=== PATIENT | female | born 1995 | race African-American/Black ===

== ENCOUNTER 2022-10-11 00:27 | Inpatient (IN) | payer OTHER ==
[~2022-10-11] VITALS: Ht 154.9 cm; Wt 75.8 kg
--- NOTE | 2022-10-11 00:45 | NUR ---
Rubi AOx4, states she feels anxious due to the situation she was in earlier today. Patient statesshe has know pain just feeling situation is unreal. Discussed plan of care, patient verbalized agreement. Patient with no signs of distress other than anxious. All safety precautions taken.
[2022-10-11] MEDS ORDERED: LORAZEPAM INJ 2 MG/ML VIAL IVP ONE (01:00)
[2022-10-11] MEDS ORDERED: IV NS 0.9% 1,000 ML BAG IV ONE (01:00)
--- NOTE | 2022-10-11 01:00 | NUR ---
Blood collected, sent to lab
--- NOTE | 2022-10-11 01:03 | NUR ---
Urine collected, sent to lab
[2022-10-11 01:07] LABS: BASOPHILS # (AUTO) 0.1 K/uL (0.0-0.2); BASOPHILS % (AUTO) 0.6 % (0.0-2.0); HEMATOCRIT 40 % (33-45); HEMOGLOBIN 13.5 g/dL (11.5-14.8); LYMPHOCYTES # (AUTO) 2.3 K/uL (0.8-4.8); LYMPHOCYTES % (AUTO) 25.8 % (20.0-44.0); MEAN CORPUSCULAR HGB CONC 34 g/dl (31.0-36.0); MEAN CORPUSCULAR VOLUME 94 fL (82-100); MONOCYTES # (AUTO) 0.6 K/uL (0.1-1.30); MONOCYTES % (AUTO) 6.6 % (2.0-12.0); PLATELET COUNT (AUTO) 333 K/uL (150-450); RED BLOOD CELL COUNT(AUTO) 4.22 MIL/uL (4.0-5.2); WHITE BLOOD COUNT (AUTO) 9.1 K/uL (4.3-11.0)
[2022-10-11] MEDS ORDERED: LORAZEPAM INJ 2 MG/ML VIAL ONE (01:21)
[2022-10-11 01:36] LABS: ALANINE AMINOTRANSFERASE 34 U/L (12-78); ALBUMIN 4.2 g/dL (3.4-5.0); ALCOHOL, BLOOD 126 mg/dL (0-0); ALKALINE PHOSPHATASE 64 U/L (46-116); ASPARTATE AMINOTRANSFERASE 27 U/L (15-37); BILIRUBIN,DIRECT 0.1 mg/dL (0.0-0.2); BILIRUBIN,TOTAL 0.7 mg/dL (0.2-1.0); CALCIUM, SERUM 9.5 mg/dL (8.5-10.1); CARBON DIOXIDE 14 mmol/L (21-32); CHLORIDE 99 mmol/L (98-107); CREATININE 1.1 mg/dL (0.6-1.3); GLUCOSE 133 mg/dL (74-106); SODIUM SERUM 135 mmol/L (136-145); TOTAL PROTEIN, SERUM 8.3 g/dL (6.4-8.2); UREA NITROGEN, BLOOD 13 mg/dL (7-18)
[2022-10-11 01:37] LABS: POTASSIUM 2.3 mmol/L (3.5-5.1)
--- NOTE | 2022-10-11 01:37 | NUR ---
[employer] at bedside assisting patient to contact family and track down cell phone.
--- NOTE | 2022-10-11 01:37 | NUR ---
CRITICAL LAB RESULT: POTASSIUM 2.3 DR GIO ODONNELL AWARE
--- NOTE | 2022-10-11 01:44 | NUR ---
GENE CAM (FATHER) [phone]
[2022-10-11] MEDS ORDERED: POTASSIUM CL. PREMIX PERIPHER. 50 ML ONE ×4 (01:52→05:13)
[2022-10-11] MEDS ORDERED: POTASSIUM CHLORIDE 20 MEQ TAB.PRT.SR PO ONE ×2 (01:52→02:00)
[2022-10-11 02:02] LABS: BILIRUBIN,URINE NEGATIVE (NEGATIVE); COLOR,URINE YELLOW (YELLOW); LEUKOCYTE ESTERASE ,URINE TRACE (NEGATIVE); NITRITE, URINE NEGATIVE (NEGATIVE); PROTEIN,URINE NEGATIVE (NEGATIVE); UGLUCOSE NEGATIVE (NEGATIVE); UROBILINOGEN,URINE 0.2 EU/dL (0.2)
[2022-10-11 02:03] LABS: BACTERIA,URINE Rare /HPF (None Seen); RBC,URINE 0-2 /HPF (0-2); SQUAMOUS EPITHELIAL CELL,UR Few /HPF (None Seen); WBC,URINE 0-2 /HPF (0-3)
[2022-10-11] MEDS: POTASSIUM CL. PREMIX PERIPHER. 50 ML IV SCH ×4 (02:05→05:21)
--- NOTE | 2022-10-11 02:20 | NUR ---
CALLED RT FOR [facility]
--- NOTE | 2022-10-11 02:33 | NUR ---
DR POWERS PRESENT PT TO GERALDINE GAGNON
[2022-10-11 04:24] LABS: SITE, VBG Other; VBG COHb 0.2 %; VBG MetHb 0.3 %; VBG O2Hb 73.5 %; VENT MODE, VBG room air
--- NOTE | 2022-10-11 05:22 | NUR ---
Patient AOx4, no signs of distress or discomforts. Patient states she feels better compared to when she was first admitted. Would like to go home and communicate with her steel worker her current situation. Discussed plan of care, and the MDs concerns. Patient states she will think about staying and will let us know if she amor leave AMA.
[2022-10-11] MEDS ORDERED: IV NS 0.9% 1,000 ML IV ONE (05:30)
[2022-10-11] MEDS ORDERED: Z GUARD REMEDY 4 OZ OINT TP PRN (05:30)
[2022-10-11] MEDS ORDERED: ZOLPIDEM TARTRATE 5 MG TABLET PO PRN (05:30)
[2022-10-11] MEDS ORDERED: MAGNESIUM HYDROXIDE 30 ML UDC PO PRN (05:30)
[2022-10-11] MEDS ORDERED: ONDANSETRON HCL/PF 4 MG/2 ML VIAL IVP PRN (05:30)
[2022-10-11] MEDS ORDERED: ACETAMINOPHEN 325 MG TABLET PO PRN (05:30)
[2022-10-11] MEDS ORDERED: MAG HYDROX/AL HYDROX/SIMETH 30 ML UDC PO PRN (05:30)
[2022-10-11 06:09] LABS: BASOPHILS # (AUTO) 0.1 K/uL (0.0-0.2); BASOPHILS % (AUTO) 1.7 % (0.0-2.0); EOSINOPHILS % (AUTO) 0.3 % (0.0-6.0); HEMATOCRIT 35 % (33-45); HEMOGLOBIN 11.9 g/dL (11.5-14.8); LYMPHOCYTES # (AUTO) 1.1 K/uL (0.8-4.8); LYMPHOCYTES % (AUTO) 15.6 % (20.0-44.0); MEAN CORPUSCULAR HGB CONC 34 g/dl (31.0-36.0); MEAN CORPUSCULAR VOLUME 94 fL (82-100); MONOCYTES # (AUTO) 0.3 K/uL (0.1-1.30); MONOCYTES % (AUTO) 3.7 % (2.0-12.0); NEUTROPHILS # (AUTO) 5.8 K/uL (1.8-8.9); NEUTROPHILS % (AUTO) 78.7 % (43.0-81.0); PLATELET COUNT (AUTO) 274 K/uL (150-450); RED BLOOD CELL COUNT(AUTO) 3.68 MIL/uL (4.0-5.2); WHITE BLOOD COUNT (AUTO) 7.3 K/uL (4.3-11.0)
[2022-10-11 06:24] LABS: CALCIUM, SERUM 7.9 mg/dL (8.5-10.1); CREATININE 0.8 mg/dL (0.6-1.3); MAGNESIUM 1.7 mg/dL (1.8-2.4); PHOSPHORUS 3.8 mg/dL (2.5-4.9); POTASSIUM 4.9 mmol/L (3.5-5.1)
--- NOTE | 2022-10-11 07:59 | NUR ---
CALLED NURSING SUP FOR TELE BED.
--- NOTE | 2022-10-11 08:42 | NUR ---
304-1. Admitting made aware
[2022-10-11 08:59] LABS: ABG BASE EXCESS -5.4 mmol/L; ABG PCO2 23.1 mmHg (35.0-45.0); ABG PH 7.469 (7.350-7.450); ABG PO2 110.4 mmHg (75.0-100.0); COHb 0.3 % (0.5-1.5); MetHb 0.4 % (0.0-1.5); O2Hb 97.1 % (94.0-97.0); SITE, ABG Right Radial; VENT MODE, BG ROOMAIR
--- NOTE | 2022-10-11 09:24 | NUR ---
GAVE REPORT TO CHINEDU RN, PT GOING TO ROOM 304-1, [facility] TRANSPORT WITH ONE RN
--- NOTE | 2022-10-11 09:25 | NUR ---
RN OPENING NOTE PATIENT WAS TRANSFER TO UNIT FROM ER VIA GURNEY WITH NO SIGN OF DISTRESS NOTED. PATIENT WAS ORIENTED TO ROOM SET UP AND EDUCATED ON THE USE OF CALL LIGHT. SKIN ASSESSMENT DONE, SKIN INTACT. BELONGING LIST CHECKED AND SIGNED. A/O X 4. ON ROOM AIR, BREATHING EVEN AND UNLABORED. NO SIGNS OF DISTRESS NOTED. S/S OF PAIN NOTED AT THIS TIME. IV ACCESS AT RAC G#20, INTACT PATENT AND FLUSHING WELL. PATIENT WITH EXTERNAL CIVIL DEFENSE DIRECTOR WITH CURRENT READING OF SR AND HR OF 85. FALL AND SAFETY MEASURES IN PLACED, BED LOCKED IN LOWEST POSITION, BED ALARM ON, SIDE RAILS UP X 2, CALL LIGHT AND TABLE WITHIN REACH; WILL CONTINUE TO MONITOR PATIENT THROUGHOUT SHIFT.
[2022-10-11 11:30] VITALS: BP 115/72
[2022-10-11 11:50] VITALS: BP 115/75
[2022-10-11 15:39] VITALS: BP 116/81
--- NOTE | 2022-10-11 18:43 | NUR ---
RN CLOSING NOTE PATIENT AWAKE IN BED, A/O X 4. ON ROOM AIR, BREATHING EVEN AND UNLABORED. NO SIGNS OF DISTRESS NOTED. S/S OF PAIN NOTED AT THIS TIME. IV ACCESS AT RAC G#20, INTACT PATENT AND FLUSHING WELL. PATIENT WITH EXTERNAL CEMENT PRODUCTION PLANT OPERATOR WITH CURRENT READING OF SR AND HR 0F 86, NO CARDIAC DISTRESS NOTED. FALL AND SAFETY MEASURES IN PLACED, BED LOCKED IN LOWEST POSITION, SIDE RAILS UP X 2, CALL LIGHT AND TABLE WITHIN REACH. ALL NEEDS ATTENDED AND ANTICIPATED. WILL ENDORSE TO FLOUR BROKER NURSE.
--- NOTE | 2022-10-11 19:00 | NUR ---
MUSIC EDUCATION ADJUNCT PROFESSOR OPENING NOTE PATIENT IS RESTING IN BED, ALERT AND ORIENTATED, AO X 4. SHE IS ON RA, TOLERATED WELL. NO S/S OF DISTRESS OR SOB. PT DENIES OF HAVING PAIN AT THIS MOMENT. IV ACCESS IS AT HER R AC, # 20G, SL. FLUSHED WELL. IV SITE IS PATENT AND INTACT. PT IS ON EXTERNAL DIESEL ENGINE I PIPE FITTER, ON THE MONITOR, HER HEART RHYTHM IS SR WITH HR AT 80S. SAFETY MEASURES ARE IN PLACED: BED IN LOWEST AND LOCKED POSITION; SIDE RAILS UP X 2; CALL LIGHT AND TABLE ARE WITHIN REACH. WILL CONTINUE MONITORING THE PT AND PROVIDE THE CARE PT NEEDS.
[2022-10-11 20:00] VITALS: BP 107/73
[2022-10-12] VITALS: BP 112/73
[2022-10-12 06:13] LABS: BASOPHILS % (AUTO) 0.8 % (0.0-2.0); EOSINOPHILS % (AUTO) 3.9 % (0.0-6.0); HEMATOCRIT 38 % (33-45); HEMOGLOBIN 12.8 g/dL (11.5-14.8); LYMPHOCYTES # (AUTO) 2.4 K/uL (0.8-4.8); LYMPHOCYTES % (AUTO) 42.2 % (20.0-44.0); MEAN CORPUSCULAR HGB CONC 34 g/dl (31.0-36.0); MEAN CORPUSCULAR VOLUME 95 fL (82-100); MONOCYTES # (AUTO) 0.4 K/uL (0.1-1.30); MONOCYTES % (AUTO) 7.3 % (2.0-12.0); NEUTROPHILS # (AUTO) 2.6 K/uL (1.8-8.9); NEUTROPHILS % (AUTO) 45.8 % (43.0-81.0); PLATELET COUNT (AUTO) 269 K/uL (150-450); RED BLOOD CELL COUNT(AUTO) 4.02 MIL/uL (4.0-5.2); WHITE BLOOD COUNT (AUTO) 5.8 K/uL (4.3-11.0)
[2022-10-12 06:48] LABS: CALCIUM, SERUM 8.8 mg/dL (8.5-10.1); CREATININE 0.9 mg/dL (0.6-1.3); MAGNESIUM 2.1 mg/dL (1.8-2.4); PHOSPHORUS 3.8 mg/dL (2.5-4.9); POTASSIUM 3.7 mmol/L (3.5-5.1)
--- NOTE | 2022-10-12 07:12 | NUR ---
CHIEF NURSE ANESTHETIST CLOSING NOTE PATIENT IS RESTING IN BED, ALERT AND ORIENTATED, AO X 4. SHE IS ON 2LPM OF OXYGEN VIA NC, TOLERATED WELL. NO S/S OF DISTRESS OR SOB. PT DENIES OF HAVING PAIN AT THIS MOMENT. IV ACCESS IS AT HER R AC, # 20G, SL. FLUSHED WELL. IV SITE IS PATENT AND INTACT. PT IS ON EXTERNAL GRADE SCHOOL TEACHER, ON THE MONITOR, HER HEART RHYTHM IS SR WITH HR AT 60S. SAFETY MEASURES ARE IN PLACED: BED IN LOWEST AND LOCKED POSITION; SIDE RAILS UP X 2; CALL LIGHT AND TABLE ARE WITHIN REACH. WILL ENDORSE NEXT SHIFT NURSE FOR CONTINUING PT CARE.
[2022-10-12 07:30] VITALS: BP 112/70
--- NOTE | 2022-10-12 07:37 | NUR ---
OIL WELL FISHING TOOL OPERATOR OPENING NOTE RECEIVED PATIENT RESTING IN BED, AWAKE, ALERT AND ORIENTATED X 4. ON RA, TOLERATING WELL, NO S/S OF DISTRESS OR SOB. PT DENIES PAIN AT THIS TIME. IV ACCESS IS AT R AC, # 20G, SL, FLUSHING WELL. PT IS ON EXTERNAL SHUTTLE OPERATOR, CURRENT READING SR, HR = 66. SAFETY MEASURES ARE IN PLACED: BED IN LOWEST AND LOCKED POSITION; SIDE RAILS UP X 2; CALL LIGHT AND TABLE ARE WITHIN REACH, WILL CONT WITH PLAN OF CARE DURING SHIFT.
[2022-10-12] MEDS ORDERED: MULT-447 PO (09:49)
--- NOTE | 2022-10-12 12:00 | NUR ---
WOODWORKING SHOP HAND DC NOTES; PT CLEARED FOR DC, VITALS STABLE, ON RA WITH NO S/S OF DISTRESS AND SOB. DISCUSSED DC INSTRUCTIONS AND BELONGINGS LIST, PT SIGNED DOCUMENTS. MEDICAL RECORDS PRINTED AND GIVEN TO PT. IV ACCESS AND ID BAND REMOVED. HOSPITALIST SPOKE TO PT. PT LEFT UNIT ON FOOT WITH PT'S MOM, TRANSPORTATION IS PRIVATE CAR.
== END 2022-10-12 12:23 | disposition home or self-care (01) | DRG 812 ==
LOC: ER 00:34 → TELE 08:59
PROVIDERS: ADMIT Nurse Practitioner Acute Care; ATTEND Nurse Practitioner Acute Care
DX: T50.901A Poisoning by unspecified drugs, medicaments and biological substances, accidental (unintentional), initial encounter (principal); G92.8 Other toxic encephalopathy; E87.20 Acidosis, unspecified; M32.9 Systemic lupus erythematosus, unspecified; E87.6 Hypokalemia; E86.0 Dehydration; M79.7 Fibromyalgia; F41.9 Anxiety disorder, unspecified; Z20.822 Contact with and (suspected) exposure to COVID-19; Z88.8 Allergy status to other drugs, medicaments and biological substances; Y92.9 Unspecified place or not applicable
CPT/HCPCS: 36415; 36600; 80048-TC; 80076-TC; 81001; 82803-TC; 83605-TC; 83735-TC; 84100-TC; 84703-TC; 85025-TC; 87081-TC; C9803; G0378; G0480; J2060; J3480; J7030